=== PATIENT | female | born 1975 | race Caucasian/White ===

== ENCOUNTER 2020-11-20 13:39 | Emergency (ER) | payer BC, OTHER ==
[2020-11-20] MEDS ORDERED: Sodium Chloride 0.9% 1,000 ML IV ONE (14:16)
[2020-11-20] MEDS ORDERED: Morphine 4 MG/ML Syringe IVPUSH ONE (14:16)
[2020-11-20] MEDS ORDERED: Ondansetron 4 MG/2 ML SDV IVPUSH ONE (14:16)
--- NOTE | 2020-11-20 14:45 | EDM.PDOC ---
ED HPI GENERAL MEDICAL PROBLEM - General Chief Complaint: Abdominal Pain Stated Complaint: PAIN IN STOMACHE Time Seen by Provider: 11/20/20 13:56 Source of Information: Reports: Patient History Limitations: Reports: No Limitations - History of Present Illness INITIAL COMMENTS - FREE TEXT/NARRATIVE: HISTORY AND PHYSICAL: History of present illness: Patient is a 45-year-old female who presents to the emergency room with complaints of upper abdominal pain, nausea and vomiting over the past few weeks. She states a few years ago she had a gastric sleeve done in [place]. In August 2020 she had a gastric bypass done by the same surgeon in [place]. She has not had any postoperative complications since surgery. 2 to 3 weeks ago she started having upper abdominal pain with nausea and vomiting. She has been seen by her primary care provider and most recently in the emergency room in [place]. She states in her previous evaluations, she was told everything appeared normal. Patient denies any fever, chills, headache, change in vision, syncope or near syncope. Denies any chest pain, back pain, shortness of breath or cough. Denies any diarrhea, constipation or dysuria. Has not noted any blood in urine or stool. Patient has been eating and drinking appropriately. Review of systems: As per history of present illness and below otherwise all systems reviewed and negative. Past medical history: As per history of present illness and as reviewed below otherwise noncontributory. Surgical history: As per history of present illness and as reviewed below otherwise n oncontributory. Social history: See social history for further information Family history: As per history of present illness and as reviewed below otherwise noncontributory. Physical exam: General: Well developed and well nourished 45-year-old female. Alert and orientated x 3. Nontoxic in appearance and in no acute distress. Vital signs are stable and have been reviewed by me. Nursing notes were reviewed. HEENT: Atraumatic, normocephalic, pupils equal and reactive bilaterally, negative for conjunctival pallor or scleral icterus, mucous membranes moist, TMs normal bilaterally, throat clear, neck supple, nontender, trachea midline. No drooling or trismus noted. No meningeal signs. No hot potato voice noted. Lungs: Clear to auscultation bilaterally. No wheezes, rales, or rhonchi. Chest nontender. Normal work of breathing, no accessory muscles used. Heart: S1S2, regular rate and rhythm without overt murmur, gallops, or rubs. No JVD. No peripheral edema Abdomen: Soft, nondistended, generalized upper abdominal pain. Normoactive bowel sounds. Negative for masses or costovertebral tenderness. Skin: Intact, warm, dry. No lesions or rashes noted. Hematologic: No petechiae or purpra. Mucosa appropriate color and normal nail bed color and refill. Extremities: Atraumatic, moves all extremities per self without difficulty or deficits, negative for cords or calf pain. Neurovascular unremarkable. Neuro: Awake, alert, oriented. Cranial nerves II through XII unremarkable. Cerebellum unremarkable. Motor and sensory unremarkable throughout. Exam nonfocal. Psychiatric: Mood and affect are appropriate. Normal thought process. Answering questions appropriately. Notes: *This patient was seen and evaluated during the 2019 SARS-CoV-2 novel coronavirus pandemic period. Community viral transmission is ongoing at time of this encounter and the emergency department is operating under pandemic response procedures. Patient is a 45-year-old female who presents to the emergency room with complaints of upper abdominal pain, nausea and vomiting. She states symptoms have been ongoing for the past few weeks and has been evaluated without any significant results detailing why. She is actively vomiting during the physical exam. I will do basic lab work, IV fluids, pain medication and nausea medicine. Due to surgery being just a few months ago I will do a CT scan of her abdomen and pelvis. She states she did have one last week at [facility] which was "normal". Lab work is unremarkable. CT shows mild wall thickening and fat stranding around the distal stomach and proximal duodenum may be secondary to gastroenteritis. Status post cholecystectomy, gastric bypass procedure, and sleeve gastrectomy. I have talked with the patient about today's findings, in addition to providing specific details for plan of care. Patient does feel improved and has not had any nausea or vomiting since the medication. Reassessment at the time of disposition demonstrates that the patient is in no acute distress. She states she has been in contact with a GI specialist/bariatric surgeon in [place] and does plan on following up if these intermittent GI symptoms continue. The patient is stable for discharge, counseling was provided and we discussed in great detail signs and symptoms that would prompt them to return to the Emergency Department. Medication, follow up and supportive care measures were reviewed and discussed. Voices understanding and is agreeable to plan of care. Denies any further questions or concerns at this time. Diagnostics: CBC, CMP, UA, lipase, CT abdomen and pelvis Therapeutics: IV fluid, Zofran, morphine Prescription: None Impression: Gastroenteritis Plan: 1. You were evaluated today on an emergent basis. Your lab work is within normal limits. CT shows a gastroenteritis (stomach virus). [place] diet, advance as tolerated. 2. You can alternate Tylenol and ibuprofen as needed for pain and fever management. 3. We encourage you to follow up with your primary care provider and/or recommended specialist in the next few days for re-evaluation and further care/management. 4. If your symptoms should worsen, new symptoms develop or any of the signs and symptoms we discussed should arise please return to the emergency room or call 911 (if needed). Definitive disposition and diagnosis as appropriate pending reevaluation and review of above. upper abdomne Pain Score (Numeric/FACES): 9 - Related Data Allergies Allergy/AdvReac Type Severity Reaction Status Date / Time Penicillins Allergy Rash Verified 04/01/14 13:50 Home Meds: Home Meds Iron 18 mg PO DAILY 11/20/20 [History] Past Medical History Hematologic History: Reports: Anemia - Infectious Disease History Infectious Disease History: Reports: None - Past Surgical History GI Surgical History: Reports: Bariatric Procedure Social & Family History - Family History Family Medical History: No Pertinent Family History - Caffeine Use Caffeine Use: Reports: None - Recreational Drug Use Recreational Drug Use: No ED ROS GENERAL - Review of Systems Review Of Systems: Comprehensive ROS is negative, except as noted in HPI. ED EXAM, GI/ABD - Physical Exam Exam: See Below (SEe dictation) Course - Vital Signs Last Recorded V/S: Last Vital Signs Temp 98.4 F 11/20/20 13:59 Pulse 71 11/20/20 13:59 Resp 16 11/20/20 13:59 BP 145/90 H 11/20/20 13:59 Pulse Ox 100 11/20/20 13:59 - Orders/Labs/Meds Labs: Laboratory Tests 11/20/20 11/20/20 11/20/20 Range/Units 14:00 14:00 14:18 WBC 6.37 (4.0-11.0) K/uL RBC 4.69 (4.30-5.90) M/uL Hgb 11.3 L (12.0-16.0) g/dL Hct 35.6 L (36.0-46.0) % MCV 75.9 L (80.0-98.0) fL MCH 24.1 L (27.0-32.0) pg MCHC 31.7 (31.0-37.0) g/dL RDW Std Deviation 54.0 (28.0-62.0) fl RDW Coeff of Kike 19 H (11.0-15.0) % Plt Count 207 (150-400) K/uL Neut % (Auto) 69.5 (48.0-80.0) % Lymph % (Auto) 22.8 (16.0-40.0) % [place] % (Auto) 6.6 (0.0-15.0) % Eos % (Auto) 0.6 (0.0-7.0) % Baso % (Auto) 0.5 (0.0-1.5) % Neut # (Auto) 4.4 (1.4-5.7) K/uL Lymph # (Auto) 1.5 (0.6-2.4) K/uL Hutch[place] # (Auto) 0.4 (0.0-0.8) K/uL Eos # (Auto) 0.0 (0.0-0.7) K/uL Baso # (Auto) 0.0 (0.0-0.1) K/uL Nucleated RBC % 0.0 /100WBC Nucleated RBCs # 0 K/uL Sodium (136-145) mmol/L Potassium (3.5-5.1) mmol/L Chloride (98-107) mmol/L Carbon Dioxide (21.0-32.0) mmol/L BUN (7.0-18.0) mg/dL Creatinine (0.6-1.0) mg/dL Est Cr Clr Drug Dosing mL/min Estimated GFR (MDRD) ml/min Glucose (74-106) mg/dL Calcium (8.5-10.1) mg/dL Total Bilirubin (0.2-1.0) mg/dL AST (15-37) IU/L ALT (14-63) IU/L Alkaline Phosphatase (46-116) U/L Total Protein (6.4-8.2) g/dL Albumin (3.4-5.0) g/dL Globulin (2.6-4.0) g/dL Albumin/Globulin Ratio (0.9-1.6) Lipase (73-393) U/L Urine Color YELLOW Urine Appearance CLEAR Urine pH 6.0 (5.0-8.0) Ur Specific [place] >= 1.030 (1.001-1.035) Urine Protein NEGATIVE (NEGATIVE) mg/dL Urine Glucose (UA) NEGATIVE (NEGATIVE) mg/dL Urine Ketones 40 H (NEGATIVE) mg/dL Urine Occult Blood NEGATIVE (NEGATIVE) Urine Nitrite NEGATIVE (NEGATIVE) Urine Bilirubin NEGATIVE (NEGATIVE) Urine Urobilinogen 0.2 (<2.0) EU/dL Ur Leukocyte Esterase NEGATIVE (NEGATIVE) Urine HCG, Qual NEGATIVE (NEGATIVE) 11/20/20 Range/Units 14:18 WBC (4.0-11.0) K/uL RBC (4.30-5.90) M/uL Hgb (12.0-16.0) g/dL Hct (36.0-46.0) % MCV (80.0-98.0) fL MCH (27.0-32.0) pg MCHC (31.0-37.0) g/dL RDW Std Deviation (28.0-62.0) fl RDW Coeff of Kike (11.0-15.0) % Plt Count (150-400) K/uL Neut % (Auto) (48.0-80.0) % Lymph % (Auto) (16.0-40.0) % [place] % (Auto) (0.0-15.0) % Eos % (Auto) (0.0-7.0) % Baso % (Auto) (0.0-1.5) % Neut # (Auto) (1.4-5.7) K/uL Lymph # (Auto) (0.6-2.4) K/uL [place] # (Auto) (0.0-0.8) K/uL Eos # (Auto) (0.0-0.7) K/uL Baso # (Auto) (0.0-0.1) K/uL Nucleated RBC % /100WBC Nucleated RBCs # K/uL Sodium 145 (136-145) mmol/L Potassium 3.5 (3.5-5.1) mmol/L Chloride 108 H (98-107) mmol/L Carbon Dioxide 26.8 (21.0-32.0) mmol/L BUN 10 (7.0-18.0) mg/dL Creatinine 0.6 (0.6-1.0) mg/dL Est Cr Clr Drug Dosing 113.18 mL/min Estimated GFR (MDRD) > 60.0 ml/min Glucose 96 (74-106) mg/dL Calcium 8.6 (8.5-10.1) mg/dL Total Bilirubin 0.3 (0.2-1.0) mg/dL AST 18 (15-37) IU/L ALT 24 (14-63) IU/L Alkaline Phosphatase 191 H (46-116) U/L Total Protein 7.6 (6.4-8.2) g/dL Albumin 3.5 (3.4-5.0) g/dL Globulin 4.1 H (2.6-4.0) g/dL Albumin/Globulin Ratio 0.9 (0.9-1.6) Lipase 126 (73-393) U/L Urine Color Urine Appearance Urine pH (5.0-8.0) Ur Specific [place] (1.001-1.035) Urine Protein (NEGATIVE) mg/dL Urine Glucose (UA) (NEGATIVE) mg/dL Urine Ketones (NEGATIVE) mg/dL Urine Occult Blood (NEGATIVE) Urine Nitrite (NEGATIVE) Urine Bilirubin (NEGATIVE) Urine Urobilinogen (<2.0) EU/dL Ur Leukocyte Esterase (NEGATIVE) Urine HCG, Qual (NEGATIVE) Meds: Medications Discontinued Medications Generic Name Dose Route Start Last Admin Trade Name Leigh Ann PRN Reason Stop Dose Admin Sodium Chloride 1,000 mls @ 999 mls/hr 11/20/20 14:16 11/20/20 14:43 Normal Saline IV 11/20/20 15:16 999 mls/hr STAT ONE Administration Iopamidol 100 ml 11/20/20 15:33 11/20/20 15:35 Iopamidol 755 Mg/Ml 500 Ml Multipack Bottle IVPUSH 11/20/20 15:34 100 ml ONETIME ONE Administration Morphine Sulfate 4 mg 11/20/20 14:16 11/20/20 14:44 Morphine 4 Mg/Ml Syringe IVPUSH 11/20/20 14:17 4 mg ONETIME ONE Administration Ondansetron HCl 4 mg 11/20/20 14:16 11/20/20 14:44 Ondansetron 4 Mg/2 Ml Sdv IVPUSH 11/20/20 14:17 4 mg ONETIME ONE Administration Departure - Departure Time of Disposition: 16:40 Disposition: Home, Self-Care 01 Condition: Good Clinical Impression: Gastroenteritis - Discharge Information Instructions: Viral Gastroenteritis, Adult, [id number] Referrals: [facility] [Primary Care Provider] - Forms: ED Department Discharge Additional Instructions: The following information is given to patients seen in the emergency department who are being discharged to home. This information is to outline your options for follow-up care. We provide all patients seen in our emergency department with a follow-up referral. The need for follow-up, as well as the timing and circumstances, are variable depending upon the specifics of your emergency department visit. If you don't have a primary care physician on staff, we will provide you with a referral. We always advise you to contact your personal physician following an emergency department visit to inform them of the circumstance of the visit and for follow-up with them and/or the need for any referrals to a consulting specialist. The emergency department will also refer you to a specialist when appropriate. This referral assures that you have the opportunity for follow-up care with a specialist. All of these measure are taken in an effort to provide you with optimal care, which includes your follow-up. Under all circumstances we always encourage you to contact your private physician who remains a resource for coordinating your care. When calling for follow-up care, please make the office aware that this follow-up is from your recent emergency room visit. If for any reason you are refused follow-up, please contact the [facility] Emergency Department at and asked to speak to the emergency department charge nurse. [facility] [address] [place] [id number] [facility] [address] [place] [id number] Thank you for choosing the [facility] emergency department in [place] for your medical needs today. It was a pleasure caring for you. Today you were seen in the emergency department for nausea and vomiting. 1. You were evaluated today on an emergent basis. Your lab work is within normal limits. CT shows a gastroenteritis (stomach virus). [place] diet, advance as tolerated. 2. You can alternate Tylenol and ibuprofen as needed for pain and fever management. 3. We encourage you to follow up with your primary care provider and/or recommen ded specialist in the next few days for re-evaluation and further care/management. 4. If your symptoms should worsen, new symptoms develop or any of the signs and symptoms we discussed should arise please return to the emergency room or call 911 (if needed). Sepsis Event Note (ED) - Evaluation Sepsis Screening Result: No Definite Risk - Focused Exam Vital Signs: Vital Signs Temp Pulse Resp BP Pulse Ox 11/20/20 13:59 98.4 F 71 16 145/90 H 100
[2020-11-20 14:57] LABS: BLOOD UREA NITROGEN,BUN 10 mg/dL (7.0-18.0); CARBON DIOXIDE,CO2 26.8 mmol/L (21.0-32.0); CHLORIDE,CL 108 mmol/L (98-107); GLUCOSE RANDOM 96 mg/dL (74-106); LIPASE 126 U/L (73-393); POTASSIUM,K 3.5 mmol/L (3.5-5.1); SODIUM,NA 145 mmol/L (136-145)
[2020-11-20] MEDS ORDERED: Iopamidol 755 MG/ML 500 ML Multipack Bottle IVPUSH ONE (15:33)
--- NOTE | 2020-11-20 16:35 | CT ---
INDICATION: Upper abdominal pain, nausea, vomiting, diarrhea for 1 week TECHNIQUE: CT abdomen and pelvis acquired with 100 cc Isovue 370 IV contrast. COMPARISON: None FINDINGS: Lower chest: Unremarkable. Liver: Unremarkable. Spleen: Unremarkable. Pancreas: Unremarkable. Gallbladder and bile ducts: Status post cholecystectomy. Mild intrahepatic and extrahepatic biliary ductal dilatation is likely due to reservoir effect. Adrenal glands: Unremarkable. Kidneys: Unremarkable. GI tract: Status post gastric bypass procedure and sleeve gastrectomy. There is mild wall thickening and fat stranding around the distal stomach and proximal duodenum. Short-segment intussusception involving a small bowel loop in the upper pelvis image 140 series 201. No proximal bowel obstruction. This is likely a transient phenomenon. Normal appendix. Vascular structures: Unremarkable. Lymph nodes: Unremarkable. Miscellaneous: Unremarkable. No free air or significant free fluid. Pelvic Organs: Unremarkable. Bones: Mild S shaped scoliosis of the spine. IMPRESSION: Mild wall thickening and fat stranding around the distal stomach and proximal duodenum may be secondary to gastroenteritis. Status post cholecystectomy, gastric bypass procedure, and sleeve gastrectomy. Please note that all CT scans at this facility use dose modulation, iterative reconstruction, and/or weight-based dosing when appropriate to reduce radiation dose to as low as reasonably achievable. Dictated by Malissa Magdaleno MD @ 11/20/2020 4:34:[address] Malissa Magdaleno @ Nov 20 2020 4:34PM
[2020-11-20] MEDS ORDERED: Alum Hydrox/Mag Hydrox/Simeth 15 ML, Metoclopramide 5 MG, Lidocaine 2% 5 ML PO ONE ×3 (16:50)
[2020-11-20 16:59] VITALS: BP 128/81; PULSE 78
== END 2020-11-20 17:01 | disposition home or self-care (01) ==
LOC: MW.ED 13:39
DX: K52.9 Noninfective gastroenteritis and colitis, unspecified (principal); Z88.0 Allergy status to penicillin
CPT/HCPCS: 36415; 74177; 80053; 81003; 81025; 83690; 85025; 96374; 96375; 99284; A9270; J2270; J2405; J7030; Q9967; 99283

== ENCOUNTER 2021-08-16 11:23 | Day surgery (SDC) | payer BC ==
[~2021-08-16 11:23] MED LIST: Lactated Ringers 1,000 ML IV SCH
[2021-08-16] MEDS ORDERED: Lidocaine 2% 5 ML SDV ONE (11:25)
[2021-08-16] MEDS ORDERED: fentaNYL 100 MCG/2 ML SDV ONE (11:25)
[2021-08-16] MEDS ORDERED: Propofol 200 MG/20 ML SDV ONE (11:25)
[2021-08-16] MEDS ORDERED: Lactated Ringers 1,000 ML IV SCH (13:15)
[2021-08-16 13:19] VITALS: BP 117/70; PULSE 74
== END 2021-08-16 13:30 | disposition home or self-care (01) ==
LOC: MW.SDS 11:23
PROVIDERS: ATTEND Surgery
DX: K29.50 Unspecified chronic gastritis without bleeding (principal); K31.89 Other diseases of stomach and duodenum; I77.4 Celiac artery compression syndrome; D64.9 Anemia, unspecified; I77.1 Stricture of artery; R63.4 Abnormal weight loss; Z88.0 Allergy status to penicillin; Z68.26 Body mass index [BMI] 26.0-26.9, adult; Z72.89 Other problems related to lifestyle; Z98.84 Bariatric surgery status; Z90.49 Acquired absence of other specified parts of digestive tract; Z98.890 Other specified postprocedural states; Z79.899 Other long term (current) drug therapy
CPT/HCPCS: 43239; 81025; J2704; J3010; J7120; 00731